=== PATIENT | female | born 1985 | race Caucasian/White ===

== ENCOUNTER → 2017-08-22 | Outpatient (CLI) | payer OTHER | LOC: FIMAGING 09:32 | PROVIDERS: ATTEND Student in an Organized Health Care Education/Training Program | DX: O30.041 Twin pregnancy, dichorionic/diamniotic, first trimester (principal); Z3A.13 13 weeks gestation of pregnancy ==

== ENCOUNTER → 2017-10-11 | Outpatient (CLI) | payer OTHER | LOC: FIMAGING 11:37 | PROVIDERS: ATTEND Student in an Organized Health Care Education/Training Program | DX: O30.042 Twin pregnancy, dichorionic/diamniotic, second trimester (principal); Z3A.19 19 weeks gestation of pregnancy ==

== ENCOUNTER → 2017-11-07 | Outpatient (CLI) | payer OTHER | LOC: FIMAGING 14:13 | PROVIDERS: ATTEND Student in an Organized Health Care Education/Training Program | DX: O30.042 Twin pregnancy, dichorionic/diamniotic, second trimester (principal); Z3A.23 23 weeks gestation of pregnancy ==

== ENCOUNTER → 2017-12-26 | Outpatient (CLI) | payer OTHER | LOC: FIMAGING 12:06 | PROVIDERS: ATTEND Student in an Organized Health Care Education/Training Program | DX: O30.043 Twin pregnancy, dichorionic/diamniotic, third trimester (principal); Z3A.30 30 weeks gestation of pregnancy ==

== ENCOUNTER → 2018-01-23 | Outpatient (CLI) | payer OTHER | LOC: FIMAGING 12:45 | PROVIDERS: ATTEND Student in an Organized Health Care Education/Training Program | DX: O30.043 Twin pregnancy, dichorionic/diamniotic, third trimester (principal); Z3A.34 34 weeks gestation of pregnancy ==